=== PATIENT | male | born 1990 | race Hispanic/Latino ===

== ENCOUNTER 2018-09-05 06:59 | Emergency (ER) | payer OTHER ==
[2018-09-05] MEDS ORDERED: LIDOCAINE HCL 1% 20 ML VIAL ONE (07:40)
[2018-09-05] MEDS ORDERED: IBUPROFEN 400 MG TABLET ONE (08:04)
[2018-09-05] MEDS ORDERED: SULFAMETHOX-TMP DS 800/160 TAB ONE (08:04)
== END 2018-09-05 08:16 | disposition home or self-care (01) ==
LOC: EDH 06:59 → EEVIPCON 06:59 → EDH 08:16
DX: L02.413 Cutaneous abscess of right upper limb (principal); Z72.0 Tobacco use
CPT/HCPCS: 10060